=== PATIENT | female | born 1955 | race Caucasian/White ===

== ENCOUNTER → 2019-03-07 05:37 | Day surgery (SDC) | payer BC ==
[~2019-03-07 05:37] MED LIST: Buffered Lidocaine 1% SYRIN* 1 ML/SYRINGE INTRADERM ONE; Bupivacaine 0.25% EPI 200,000* 30 ML SDV ONE; Bupivacaine 0.5%* 50 ML MDV VIAL ONE; Dexamethasone IV* 4 MG/ML 1 ML (4 MG) ONE; EPINEPHRINE 1 MG/ML 1 ML VIAL ONE; HYDROmorphone INJ1* 1 MG/ML SYRINGE IV PRN; Ketorolac INJ* 30 MG/ML 1 ML VIAL ONE; Metoclopramide IV* 5 MG/ML 2 ML VIAL IV SLOW PU ONE; Metoclopramide IV* 5 MG/ML 2 ML VIAL ONE; Midazolam* 1 MG/ML 5 ML VIAL (5 MG) ONE; Naloxone* 0.4 MG/ML 1 ML VIAL IV PRN; Ondansetron INJ* 2 MG/ML VIAL IV PRN; Ondansetron INJ* 2 MG/ML VIAL ONE; Propofol* 10 MG/ML 20 ML BTL ONE; ROPIVACAINE 5 MG/ML 30 ML BTL (0.5%) ONE; Rocuronium* 10 MG/ML VIAL ONE; ceFAZolin 2 GM PREMIX in ORs 2 GM/50 ML BAG ONE
[2019-03-07 12:38] VITALS: BP 105/80
--- NOTE | 2019-03-07 15:02 | OP ---
OPERATIVE REPORT: DATE OF OPERATION: 03/07/19 DATE OF : 51 SURGEON: Wayne Lux MD SENIOR MEDIA PLANNER: JULITO Morris A physician clinical project assistant was required for the length of the procedure for assistance with patient positi oning, retraction, instrumentation, and closure. ANESTHESIOLOGIST: Dr. Chandler Velázquez. ANESTHESIA: General anesthesia, regional interscalene block anesthesia. PRE-OP DIAGNOSES: 1. Left shoulder rotator cuff tendon tear, supraspinatus, small anterior full- thickness, possible s ubscapularis. 2. Left shoulder subacromial impingement and bursitis. 3. Left shoulder acromioclavicular joint osteoarthritis. 4. Left shoulder possible medial subluxation, biceps long head tendon. POST-OP DIAGNOSES: 1. Left shoulder rotator cuff tendon tear, supraspinatus, full-thickness. 2. Left shoulder subacromial impingement and bursitis. 3. Left shoulder acromioclavicular joint osteoarthritis. 4. Left shoulder long head tendon biceps tendinitis, small superior labrum tear. OPERATIVE PROCEDURE: 1. Left shoulder arthroscopic rotator cuff tendon repair, supraspinatus, single row. 2. Left shoulder arthroscopic subacromial decompression. 3. Left shoulder arthroscopic distal clavicle resection. 4. Left shoulder arthroscopic release of long head biceps tendon. ANTIBIOTICS: Ancef 2 g IV. IV FLUIDS: See Anesthesia note. TBPT-MY-RBMU TIME: 123 minutes. SPECIMEN: None. IMPLANTS: Arthrex corkscrew 5.5 mm double loaded suture anchors x2. These were double loaded with S utureTape. COMPLICATIONS: None. ESTIMATED BLOOD LOSS: Minimal. INDICATIONS FOR PROCEDURE: The patient is a 63-year-old woman with a prior history of right shoulder surgery, who developed left shoulder pain. It was insufficiently responsive to nonoperative managem ent and she opted for surgery. We discussed biceps release versus tenodesis and we chose biceps release. I was going to examine a p ossible superior edge subscapularis tear, but there was a definitive full-thickness supraspinatus ten don tear. Discussed risks and potential complications of surgery. DESCRIPTION OF PROCEDURE: In preoperative holding, the patient signed a written consent. Operative extremity was marked in preoperative holding. The patient underwent regional interscalene nerve bloc k in preoperative holding. The patient was taken back to the operating room and placed supine on the operating room table. The patient was sedated and intubated. Mini time-out performed. Examination under anesthesia revealed full passive range of motion, 180 deg zoë of forward flexion, 90 degrees of external and internal rotation. The patient was next placed i n a lateral decubitus position. Axillary roll. Beanbag hardened. 15 pounds of longitudinal tractio n, correct amount of forward flexion and abduction of the shoulder. Left shoulder was prepped and dr clark, surgical time-out performed. Spinal needle entered into the glenohumeral joint from posterior. 30 cc of normal saline infused. P osterior glenohumeral joint portal was established using standard technique. Diagnostic arthroscopy commenced. No significant articular cartilage lesions glenohumeral joint. No loose bodies. Some tendinitis jeremi g the long head biceps tendon and small superior labrum tear. Clear high-grade supraspinatus rotator cuff tendon tear. The supraspinatus tendon width of the tear appeared larger than appreciated on MRI . Established anterior glenohumeral joint portal under direct visualization. Examined subscapularis in a variety of positions including posterior translation, internal and external rotation of the humeral head. Also debrided some comma tissue adjacent to the superior edge of the subscapularis. There wa s no subscapularis tendon tear. I debrided some rotator cuff interval tissue with arthroscopic shave r. I brought a scissors in and cut the biceps tendon near its origin and debrided some of the superior l abrum. Removed all instruments and fluid from the glenohumeral joint and then moved to the subacromial space . Established anterior and posterior subacromial portals. I later made lateral, posterolateral and then a second lateral portals under direct visualization. Debrided subacromial bursa with an arthroscopic shaver. The patient did have a prominent spur about the anterior aspect of the acromion. I flattened out the undersurface of the anterior aspect of the acromion with an arthroscopic jabari and removed that anterior spurring. I did that through the latera l portal mostly using the second lateral portal. Debridement of the subacromial bursa revealed a clear full-thickness rotator cuff tendon tear of the supraspinatus. It included over half of the width of the supraspinatus from anterior to posterior, a lthough not the entire width. I prepared the rotator cuff footprint with a VAPR and then an arthrosc opic jabari. Through superolateral poke holes, placed 2 medial row anchors. While I was placing the more posterio r of the 2 anchors, I noted some softness of the patient's bone, although we got excellent purchase w ith both of these anchors. I used an antegrade Scorpion suture passer from lateral to pass horizonta l mattress stitches with the SutureTape from these anchors. All stitches were placed, the sutures pl aced through tendon before the knots were tied. This produced an excellent single row repair, tight and length tension appropriate. I intended to do a double row repair and intended to place a lateral row anchor. I took the SutureTa pe from the medial row and placed it into a lateral row SwiveLock anchor. However, that pulled out o f bone, which was not a large surprise because the lateral proximal humerus bone was exceedingly thin . I tried to place an additional anchor more anterolateral at the lateral most end of the footprint, but again the bone was too soft to place an anchor. Therefore, I decided against a double row const ruct and instead stuck with the single row 2-anchor construct. Next moved to the AC joint. Debrided synovitic tissue with a VAPR and then removed 8 mm of the dista l end of the clavicle with an arthroscopic jabari. Closed skin incisions with [id number] and 12 stitches using nylon 3-0 suture. Xeroform, 4x4s, AB Ds, and foam tape. Sling with abduction pillow. DISPOSITION: The patient was awakened, extubated, and transferred to the PACU. The patient will take Percocet as needed for pain control. Sling at all times for 6 weeks. The patient will not start ph ysical therapy for 6 weeks. The patient will follow wound care instructions. She will see us in i steven 10 to 14 days postoperatively. [id number]/[facility] #: [id number]
== END | disposition home or self-care (01) ==
LOC: OR 05:37
PROVIDERS: ATTEND Orthopaedic Surgery
DX: M75.112 Incomplete rotator cuff tear or rupture of left shoulder, not specified as traumatic (principal); M75.42 Impingement syndrome of left shoulder; M75.52 Bursitis of left shoulder; M24.812 Other specific joint derangements of left shoulder, not elsewhere classified; M19.012 Primary osteoarthritis, left shoulder; M75.22 Bicipital tendinitis, left shoulder; Z87.891 Personal history of nicotine dependence; G89.18 Other acute postprocedural pain; I10 Essential (primary) hypertension; E78.00 Pure hypercholesterolemia, unspecified; E78.5 Hyperlipidemia, unspecified; F41.9 Anxiety disorder, unspecified
CPT/HCPCS: C1713; J0690; J1100; J1885; J2250; J2405; J2704; J2765; J2795; J3490